=== PATIENT | male | born 1985 | race Caucasian/White ===

== ENCOUNTER 2017-01-10 11:23 | Inpatient (IN) ==
--- NOTE | 2017-01-09 21:11 | Discharge Summary ---
<Aidee Mar - Last Filed: 01/09/17 21:09> Date of Encounter: 01/09/17 - Discharge Diagnosis (1) Avascular necrosis of bone of hip Priority: Secondary Status: Acute Qualifiers: Laterality: right Qualified Code(s): M87.051 - Idiopathic aseptic necrosis of right femur (2) Kidney transplant recipient Priority: Secondary Status: Acute (3) HTN (hypertension) Priority: Secondary Status: Chronic Qualifiers: Hypertension type: essential hypertension Qualified Code(s): I10 - Essential (primary) hypertension (4) DMII (diabetes mellitus, type 2) Priority: Secondary Status: Chronic Qualifiers: Diabetes mellitus complication status: with unspecified complications Diabetes mellitus longitudinal float operator insulin use: unspecified longitudinal float operator insulin use status Qualified Code(s): E11.8 - Type 2 diabetes mellitus with unspecified complications - Discharge Medications Home Medications: Amlodipine Besylate [Norvasc] 10 mg PO DAILY 06/12/15 [History] CloNIDine HCl 0.1 mg PO TID 06/12/15 [History] CycloSPORINE, Mod (Neoral) [Neoral] 75 mg PO BID 06/12/15 [History] Sulfamethoxazole/Trimeth SS [Bactrim] 1 each PO DAILY 06/12/15 [History] Duloxetine HCl [Cymbalta] 60 mg PO BID 12/09/15 [History] Magnesium Oxide [Magnesium] 500 mg PO DAILY 12/09/15 [History] Aspirin Enteric Coated [Aspirin EC] 325 mg PO DAILY #21 tablet. 01/09/17 [Rx] OxyCODONE Immed Rel [Roxicodone 5 MG] 5 - 10 mg PO Q6HR PRN #40 tablet 01/09/17 [Rx] Acetaminophen [Tylenol] 650 mg PO Q6HR PRN 01/10/17 [History] Aspirin Enteric Coated [Aspirin EC] 81 mg PO DAILY 01/10/17 [History] Atenolol [Tenormin] 50 mg PO DAILY 01/10/17 [History] Cholecalciferol (D-3) [Vitamin D] 1,000 unit PO DAILY 01/10/17 [History] Gabapentin [Neurontin] 600 mg PO TID 01/10/17 [History] Allergies/Adverse Reactions: Allergies No Known Allergies Allergy (Verified 01/10/17 12:45) Primary care physician: Sandor Combs MD - Patient Status Disposition: Home, Self-Care Condition: Good - Discharge Instructions Follow Up With: Blake Harry MD [Partnered Physician] - 02/08/17 8:20 am Aidee Mar PAC [Physician Electrical Sign Wirer Helper] - 01/20/17 9:00 am Sandor Combs MD [Primary Care Provider] - - Hospital Course Hospital course: Mr. Higgins is a 31 year old male - Time Spent with Patient Total time spent providing and/or coordinating discharge services: <Blake Harry - Last Filed: 01/12/17 06:44> Date of Encounter: 01/12/17 Time of Encounter: 06:43 - Discharge Diagnosis (1) Avascular necrosis of bone of hip Priority: Primary Status: Acute Qualifiers: Laterality: right Qualified Code(s): M87.051 - Idiopathic aseptic necrosis of right femur (2) Kidney transplant recipient Priority: Secondary Status: Acute (3) DMII (diabetes mellitus, type 2) Priority: Secondary Status: Chronic Qualifiers: Diabetes mellitus complication status: with unspecified complications Diabetes mellitus longitudinal float operator insulin use: unspecified jail insulin use status Qualified Code(s): E11.8 - Type 2 diabetes mellitus with unspecified complications (4) HTN (hypertension) Priority: Secondary Status: Chronic Qualifiers: Hypertension type: essential hypertension Qualified Code(s): I10 - Essential (primary) hypertension (5) Acute blood loss anemia Priority: Primary Status: Acute Primary care physician: Sandor Combs MD - Patient Status Functional capacity at discharge: uses cane/walker Overall status at discharge: patient is progressing back to baseline - Hospital Course Hospital course: Mr. Higgins is a 31 year old male The patient had an uneventful postoperative course. They received antibiotics and physical therapy and were discharged in stable condition. There will follow -up in the office in 2 weeks. Hematocrit 23 received 2 units prior to discharge. - Time Spent with Patient Total time spent providing and/or coordinating discharge services:
[2017-01-10] MEDS ORDERED: *HR* Succinylcholine 200 MG/10 ML VIAL IVP ONE (11:34)
[2017-01-10] MEDS ORDERED: *HR* Propofol 200 MG/20 ML VIAL IVP ONE (11:34)
[2017-01-10] MEDS ORDERED: *HR* Midazolam HCl 2 MG/2 ML VIAL ONE ×2 (11:34→13:05)
[2017-01-10] MEDS ORDERED: *HR* FentaNYL (PF) 100 MCG/2 ML VIAL ONE ×3 (11:34→13:34)
[2017-01-10] MEDS ORDERED: Dexamethasone 4 MG/ML VIAL ONE ×2 (11:34→13:19)
[2017-01-10] MEDS ORDERED: Lidocaine -MPF 2% 2 ML VIAL ONE (11:34)
[2017-01-10] MEDS ORDERED: Ondansetron 4 MG/2 ML VIAL ONE (11:34)
[2017-01-10] MEDS ORDERED: Famotidine 20 MG/2 ML VIAL IVP ONE (11:44)
[2017-01-10] MEDS ORDERED: 0.9 % Sodium Chloride 1,000 ML IVC SCH (11:45)
--- NOTE | 2017-01-10 11:47 | Anesthesia Evaluation PreOp ---
Date of Encounter: 01/10/17 Time of Encounter: 11:35 - Past History Planned Operation: Rt Total Hip Replacement Cardiac History: HTN Pulmonary History: Smoker PUDDLER PILE DRIVING History: Denies Any Significant HX Other Medical History: Renal (s/p Renal Transplant 2007, elevated creatinine), Other (Anxiety, Henoch Schon[place] Purpora) Alcohol Use: none Drug use: none Medications and Allergies Amlodipine Besylate [Norvasc] 10 mg PO DAILY 06/12/15 [History] Atenolol [Tenormin] 50 mg PO BID 06/12/15 [History] CloNIDine HCl 0.1 mg PO TID 06/12/15 [History] CycloSPORINE, Mod (Neoral) [Neoral] 75 mg PO BID 06/12/15 [History] Furosemide [Lasix] 40 mg PO BIDDIURETIC 06/12/15 [History] Nortriptyline [Pamelor] 10 mg HS 06/12/15 [History] Sulfamethoxazole/Trimeth SS [Bactrim] 1 each PO DAILY 06/12/15 [History] Duloxetine HCl [Cymbalta] 60 mg PO BID 12/09/15 [History] Magnesium Oxide [Magnesium] 1,000 mg PO DAILY 12/09/15 [History] Multivitamin [Multivitamins] 1 tab PO DAILY 12/09/15 [History] Aspirin Enteric Coated [Aspirin EC] 325 mg PO DAILY #21 tablet. 01/09/17 [Rx] OxyCODONE Immed Rel [Roxicodone 5 MG] 5 - 10 mg PO Q6HR PRN #40 tablet 01/09/17 [Rx] Allergies No Known Allergies Allergy (Verified 12/09/15 09:37) - Meds/Allergy Pre-op Review Medications Reviewed: Yes Allergies Reviewed: Yes Beta Blockers on Current Med List: Yes (Took Atenolol today 0500) Anesthesia Results - Labs Laboratory Tests 12/13/16 12/13/16 08:53 08:53 Hgb 13.7 Hct 41.8 Plt Count 200 Sodium 140 Potassium 4.1 BUN 20 Creatinine 1.57 H - Imaging EKG: report reviewed (NSR) Anesthesia Exam O2 Sat Height 1.88 m Weight 99.79 kg Height: 6'2 Weight: 220 lbs NPO (# of Hours): MN Pain Scale: 0 - HEENT Pupil (Motor): Pupils equal, EOMI Mallampati: II Teeth: Edentulous Denture Type: Upper: Complete Oral Opening: Less than or equal to 3 - PUDDLER PILE DRIVING LOC: Oriented PUDDLER PILE DRIVING Motor: Normal RUE, Normal LUE, Normal RLE, Normal LLE, Normal Face PUDDLER PILE DRIVING Sensory: Normal: RUE, LUE, RLE, LLE, Face - Cardiac Rhythm: Regular Murmur: None JVD: No Carotid Bruit: No - Pulmonary Breath Sounds: bilateral Clear Respiratory Effort: Symmetrical Anesthesia Assess/Plan ASA Score: 3 (CKD s/p Renal Transplant HTN Tobacco) Modified Michael Scale for Level of Consciousness: Cooperative, oriented, and tranquil Anesthetic Plan: General Monitoring Plan: Standard Monitors Recovery Plan: PACU (Discussed GA, agrees to proceed)
[2017-01-10] MEDS ORDERED: *HR* Promethazine 25 MG/ML VIAL IVP PRN (12:01)
[2017-01-10] MEDS ORDERED: CeFAZolin Pre 2,000 MG/100 ML 2,000 MG/100 ML BAG IVPB ONE (12:01)
[2017-01-10] MEDS ORDERED: *HR* Labetalol 100 MG/20 ML MDV IVP PRN (12:01)
[2017-01-10] MEDS ORDERED: Albuterol 2.5 MG/3 ML NEBULIZER IH ONE (12:01)
[2017-01-10] MEDS ORDERED: Ringers Solution, Lactated 1,000 ML IVC SCH ×2 (12:15→15:52)
--- NOTE | 2017-01-10 12:23 | History & Physical Report ---
Date of Encounter: 01/10/17 Time of Encounter: 12:23 24 Hour HP Update - Instructions Instructions: If the History and Physical is less than 30 days old and was completed prior to A.M. admission and or procedure and has NOT been updated on calendar day of procedure please complete this update prior to performing procedure. - Update Patient reports changes in Medical Condition: No Changes in assessment/condition: No Changes in Medication: No Preop tests/diagnostics Reviewed: Yes Surgery Remains Indicated: Yes Consent for Planned Operative Procedure(s) Verified: Yes - Pre-Operative Checklist Preoperative Checklist Indicated: No Prophylactic Antibiotic Ordered: Yes Is VTE Prophylaxis Indicated?: Yes
[2017-01-10] MEDS ORDERED: Vancomycin 1,500 MG in D5% in Water 250 ML IVPB ONE (12:27)
[2017-01-10] MEDS ORDERED: Water for inj. (sterile) 10 ML IV ONE (13:38)
[2017-01-10] MEDS ORDERED: *HR* HYDROmorphone 2 MG/ML SYRINGE ONE (13:38)
--- NOTE | 2017-01-10 13:59 | Orthopedic Operative Note ---
Date of procedure: 01/10/17 Pre-op diagnosis: Right hip avascular necrosis Post-op diagnosis: same Procedure: Procedure: Right Total Hip Replacment Estimated blood loss: 500 cc Hardware: Biomet DM Cup: 60 G7 fin cup Femoral size 15 echo full profile lateralized stem Head: +6 head with Shreya Procedural Notes: Severe cartilage loss femoral head Operative procedure: The patient was brought to the operating room and placed on the operating room table. After general anesthesia was administered the patient was placed in the lateral decubitus position with the operative leg up. All pressure points were padded appropriately and the head was stabilized in the neutral position. The operative extremity was prepped and draped in the sterile surgical fashion patient received IV antibiotic prior to skin incision. A standard posterior approach is made to the operative hip, the incision was made through the skin and subcutaneous tissue hemostasis was obtained with Bovie cautery. Using careful sharp dissection the fascia was identified and incised exposing the external rotators. The external rotators were released off the greater trochanter and tagged with #2 FiberWire suture. The capsule was T'd open and the hip was brought into internal rotation. Patient noted to have severe cartilage loss femoral head. The femoral neck cut was made at the appropriate level. An anterior capsulotomy was performed for the anterior retractor. Soft tissues removed from the acetabulum. Acetabulum was first reamed medially, and then reamed in 15 degrees of anteversion and 45 degrees off the horizontal. It was reamed up to the appropriate size 60 The appropriate-sized 60 acetabular cup was impacted in place in 15 degrees of anteversion and 45 degrees off the horizontal. This had good fit and fixation. The hip was brought back in to internal rotation and prepared with the boxing promoter followed by the canal finder followed by broaching process in 20 degrees anteversion. It was broached up to the appropriate size 15 The femoral implant was impacted in place in 20 degrees of anteversion. Trial reduction found the hip to be stable with a +6 head and Shreya. The trials were removed and the real implants were impacted in place. The hip was reduced, patient had apparent equal leg lengths. The hip had excellent stability with forward flexion to 90 degrees adduction of 30 degrees and internal rotation of 60 degrees. The hip had no shuck. The hips after 2 minutes with a Betadine saline solution. It was irrigated out with 2 L of pulse irrigation. The external rotators were reattached to drill holes in the greater trochanter. Fascia was closed with a running #2 PDS suture. The deep tissue was irrigated and closed deep with #1 PDS suture superficially with 0 PDS suture and skin was closed with Dermabond and skin radha. The patient was placed in a sterile dressing and abduction pillow. The patient was extubated and transferred to the recovery room in stable condition. Anesthesia: DADA Surgeon: Blake Harry Hogshead Dumper: Aidee Mar Condition: stable Disposition: PACU
[2017-01-10] MEDS: *HR* HYDROmorphone (PF) 1 MG/ML SYRINGE IVP PRN ×5 (14:44→21:28)
[2017-01-10 14:55] LABS: Hematocrit 38.7 % (37.5-50.1); Hemoglobin 13.2 g/dL (12.9-16.9)
[2017-01-10] MEDS ORDERED: 0.9 % Sodium Chloride 500 ML ONE (15:17)
--- NOTE | 2017-01-10 15:31 | Anesthesia Evaluation Post Op ---
Date of Encounter: 01/10/17 Time of Encounter: 15:15 - Vital Signs Vital Signs: Vital Signs/O2 Sat/Glucose, Most Current Temp Pulse Resp BP Pulse Ox 01/10/17 15:14 99.7 F H 94 16 135/87 96 01/10/17 14:54 99.3 F 99 16 141/96 100 01/10/17 14:44 91 16 149/99 100 01/10/17 14:34 96 16 151/102 100 01/10/17 14:24 98.4 F 102 18 158/100 100 01/10/17 12:39 18 120/78 99 01/10/17 11:53 99.1 F 84 18 120/78 99 - Lungs Lungs: Clear Ascult./Percussion - Airway Airway: Non-obstructed - Cardiovascular Regular Rate - Mental Status Mental Status: Alert & Oriented, Answers Appropriately - Pain Pain Scale: 2 - Nausea Vomiting Nausea Vomiting: Not Present - Hydration Hydration: NPO - Discharge PostOp Status: Transfer Patient to floor
[2017-01-10] MEDS ORDERED: Ondansetron 4 MG/2 ML VIAL IVP PRN (15:52)
[2017-01-10] MEDS ORDERED: MOM Conc 10 ML UD.LIQ PO PRN (15:52)
[2017-01-10] MEDS ORDERED: *HR* OxyCODONE Immed Rel 5 MG TABLET PO PRN (15:52)
[2017-01-10] MEDS ORDERED: Temazepam 15 MG CAPSULE PO PRN (15:52)
[2017-01-10] MEDS ORDERED: D5% in Water 1,000 ML IV PRN (15:52)
[2017-01-10] MEDS ORDERED: *HR* Dextrose 50 % in Water (Syg) 50 ML SYRINGE IVP PRN (15:52)
[2017-01-10] MEDS ORDERED: Sennosides 8.6 MG TABLET PO PRN (15:52)
[2017-01-10] MEDS ORDERED: Naloxone 0.4 MG/ML INJ IVP PRN (15:52)
[2017-01-10] MEDS ORDERED: Acetaminophen 325 MG TABLET PO PRN (15:52)
[2017-01-10] MEDS ORDERED: Dextrose Gel 15 GM PO PRN ×2 (15:52)
[2017-01-10] MEDS: Gabapentin 300 MG CAPSULE PO SCH ×2 (16:23→21:28)
[2017-01-10] MEDS: ceFAZolin 2,000 MG in D5% in Water 100 ML IVPB SCH (16:48)
[2017-01-10] MEDS ORDERED: *HR* Enoxaparin 30 MG/0.3 ML SYRINGE SQ SCH (18:00)
[2017-01-10] MEDS: cloNIDine HCl 0.1 MG TABLET PO SCH ×2 (18:07→23:42)
[2017-01-10] MEDS: Ascorbic Acid 500 MG TABLET PO SCH (18:07)
[2017-01-10] MEDS: *HR* Enoxaparin 30 MG/0.3 ML SYRINGE SQ SCH (18:07)
[2017-01-10] MEDS: Insulin LISPRO 300 UNITS/3 ML VIAL SQ SCH (18:08)
[2017-01-10] MEDS: *HR* OxyCODONE Immed Rel 5 MG TABLET PO PRN ×2 (19:31→23:41)
[2017-01-10] MEDS: CycloSPORINE, Mod (Neoral) 25 MG CAPSULE PO SCH (23:41)
[2017-01-11] MEDS: *HR* HYDROmorphone (PF) 1 MG/ML SYRINGE IVP PRN ×3 (03:30→17:54)
[2017-01-11] MEDS: ceFAZolin 2,000 MG in D5% in Water 100 ML IVPB SCH (04:43)
[2017-01-11] MEDS: *HR* OxyCODONE Immed Rel 5 MG TABLET PO PRN ×4 (04:43→20:16)
[2017-01-11] MEDS: *HR* Enoxaparin 30 MG/0.3 ML SYRINGE SQ SCH ×2 (04:43→17:54)
--- NOTE | 2017-01-11 06:35 | Orthopedics Progress Note ---
Date of Encounter: 01/11/17 Time of Encounter: 06:35 - Assessment and Plan (1) Avascular necrosis of bone of hip Current Visit: Yes Status: Acute Qualifiers: Laterality: right Qualified Code(s): M87.051 - Idiopathic aseptic necrosis of right femur (2) Kidney transplant recipient Current Visit: Yes Status: Acute (3) DMII (diabetes mellitus, type 2) Current Visit: Yes Status: Chronic Qualifiers: Diabetes mellitus complication status: with unspecified complications Diabetes mellitus fdc insulin use: unspecified fdc insulin use status Qualified Code(s): E11.8 - Type 2 diabetes mellitus with unspecified complications (4) HTN (hypertension) Current Visit: Yes Status: Chronic Qualifiers: Hypertension type: essential hypertension Qualified Code(s): I10 - Essential (primary) hypertension Subjective Interval history: Patient was seen this morning doing well without complaints. Afebrile vital signs stable. Operative extremity: Neurovascularly intact Dressing clean dry and intact Calves nontender Assessment and plan: Continue with postoperative care hematocrit 38 Objective Vital signs: Vital Signs Temp Pulse Resp BP Pulse Ox 01/11/17 04:06 99.2 F 87 15 129/82 97 01/10/17 23:28 98.9 F 106 19 151/93 97 01/10/17 18:00 98.6 F 90 16 140/90 94 L 01/10/17 17:00 98 F 86 15 129/89 95 01/10/17 16:30 98.2 F 84 16 140/90 94 L 01/10/17 16:00 98 F 89 14 132/87 95 01/10/17 15:46 98.6 F 96 16 151/90 97 01/10/17 15:14 99.7 F H 94 16 135/87 96 01/10/17 14:54 99.3 F 99 16 141/96 100 01/10/17 14:44 91 16 149/99 100 01/10/17 14:34 96 16 151/102 100 01/10/17 14:24 98.4 F 102 18 158/100 100 01/10/17 12:39 18 120/78 99 01/10/17 11:53 99.1 F 84 18 120/78 99 Intake and Output 01/10/17 01/10/17 01/11/17 15:59 23:59 07:59 Intake Total 100 / 100 100 / 100 Output Total 500 / 500 450 / 450 Balance -400 / -400 -350 / -350 Intake: IV Fluids 100 / 100 100 / 100 Ancef 2,000 MG In 100 / 100 Dextrose 5% 100 ML @ 200 mls/hr IVPB Q8H CHRISTIN Rx#: [id number] Ancef Premix 2,000 MG/100 100 / 100 ML 2,000 mg In 100 ml @ 200 mls/hr IVPB PREOP ONE Rx#:[id number] Output: Urine 450 / 450 Estimated Blood Loss 500 / 500 Other: Weight 99.79 kg - Labs CBC & BMP: 01/10/17 14:41 - VTE Documentation of Mechanical Device: Venous foot pump, device Consult Discharge Plan - Plan Referrals: Sandor Combs MD [Primary Care Provider] -
--- NOTE | 2017-01-11 08:14 | Nephrology Consult Note ---
Date of Encounter: 01/11/17 Time of Encounter: 08:12 Assessment and Plan (1) Kidney transplant recipient Current Visit: Yes Status: Acute Patient is status post cadaveric renal transplant in 2006. As of December he has exhibited stable renal function. Blood pressure is well controlled. He is maintained on cyclosporine 75 mg twice a day. He has not been on steroids for the past 6 months. 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 We will continue his current medical regimen. I am going to check a metabolic panel just to make sure renal function remains stable. Clinically the patient looks excellent. (2) Avascular necrosis of bone of hip Current Visit: Yes Status: Acute Qualifiers: Laterality: right Qualified Code(s): M87.051 - Idiopathic aseptic necrosis of right femur (3) HTN (hypertension) Current Visit: Yes Status: Chronic Qualifiers: Hypertension type: essential hypertension Qualified Code(s): I10 - Essential (primary) hypertension History of Present Illness - History of Present Illness This is a 31-year-old male with a history of end-stage renal disease related to at bedtime PE. Patient is status post cadaveric renal transplant in 2006. 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 Otherwise he has done well. Baseline creatinine ranges from 1.5-1.6. He currently is maintained on Neoral 75 mg twice a day. He had been on low-dose steroids up until about 6 months ago. Because of side effects the patient discontinued the steroids on his own. He is remained off the steroids since that time. Patient is status post right total hip replacement on January 10 related to avascular necrosis of the right hip. Patient also reports a history of a stress fracture of the left knee. He has had other joint symptoms as well. Otherwise he has been doing well. His blood pressure is stable. Most recent creatinine from December 13 shows that the patient's creatinine is at his usual baseline. Past Med Surg Social Fam HX - Past Medical History Medical history: other Psychiatric history: bipolar - Past Surgical History Surgical History: transplant, other - Social History Smoking Status: Current every day smoker Packs per day: 1/2 Smokeless Tobacco Status: No Alcohol use: none Drug use: none Medications and Allergies Amlodipine Besylate [Norvasc] 10 mg PO DAILY 06/12/15 [History] CloNIDine HCl 0.1 mg PO TID 06/12/15 [History] CycloSPORINE, Mod (Neoral) [Neoral] 75 mg PO BID 06/12/15 [History] Sulfamethoxazole/Trimeth SS [Bactrim] 1 each PO DAILY 06/12/15 [History] Duloxetine HCl [Cymbalta] 60 mg PO BID 12/09/15 [History] Magnesium Oxide [Magnesium] 500 mg PO DAILY 12/09/15 [History] Aspirin Enteric Coated [Aspirin EC] 325 mg PO DAILY #21 tablet.dr 01/09/17 [Rx] OxyCODONE Immed Rel [Roxicodone 5 MG] 5 - 10 mg PO Q6HR PRN #40 tablet 01/09/17 [Rx] Acetaminophen [Tylenol] 650 mg PO Q6HR PRN 01/10/17 [History] Aspirin Enteric Coated [Aspirin EC] 81 mg PO DAILY 01/10/17 [History] Atenolol [Tenormin] 50 mg PO DAILY 01/10/17 [History] Cholecalciferol (D-3) [Vitamin D] 1,000 unit PO DAILY 01/10/17 [History] Gabapentin [Neurontin] 600 mg PO TID 01/10/17 [History] Allergies No Known Allergies Allergy (Verified 01/10/17 12:45) Review of Systems Constitutional: as per HPI Eyes: bilateral: blurred vision (patient denies), diplopia (patient denies) Nose, mouth and throat: no dizziness, no headache(s) Cardiovascular: no chest pain, no palpitations Respiratory: no cough, no dyspnea Gastrointestinal: no abdominal pain, no change in bowel habits Musculoskeletal: as per HPI Musculoskeletal: left: knee pain, right: hip pain Integumentary: no hirsutism, no striae Neurological: as per HPI Psychiatric: no depression, no difficulty concentrating Endocrine: as per HPI Hematologic/Lymphatic: no easy bruising, no lymphadenopathy Exam - Vital Signs Vital signs: Initial Vital Signs Temp Pulse Resp BP Pulse Ox 99.1 F 84 18 120/78 99 01/10/17 11:53 01/10/17 11:53 01/10/17 11:53 01/10/17 11:53 01/10/17 11:53 Vital Signs - Last 8 Hours Temp Pulse Resp BP Pulse Ox 01/11/17 07:28 98.2 F 80 14 125/79 99 01/11/17 04:06 99.2 F 87 15 129/82 97 Intake and Output 01/10/17 01/11/17 01/11/17 23:59 07:59 15:59 Intake Total 200 / 200 Output Total 450 / 450 Balance -250 / -250 Intake: IV Fluids 200 / 200 Ancef 2,000 MG In 200 / 200 Dextrose 5% 100 ML @ 200 mls/hr IVPB Q8H CHRISTIN Rx#: [id number] Output: Urine 450 / 450 - General Appearance Exam: Patient is alert and oriented. He is in no acute distress. Neck is supple. Carotids show no bruits. Lungs clear to auscultation. No wheezing rales or rhonchi. Heart regular rate and rhythm without any murmur or S3-S4 gallops clicks or rubs. Abdomen shows normal bowel sounds bruits masses, megaly or tenderness. There is a renal allograft in the right lower quadrant. Lower extremities show no peripheral edema. There is a functioning AV fistula in the lower portion of the left arm. Results - Lab Results 01/10/17 14:41 Consult Discharge Plan - Plan Referrals: Sandor oCmbs MD [Primary Care Provider] -
[2017-01-11] MEDS: Insulin LISPRO 300 UNITS/3 ML VIAL SQ SCH ×3 (08:34→17:18)
[2017-01-11] MEDS: cloNIDine HCl 0.1 MG TABLET PO SCH ×3 (08:43→20:18)
[2017-01-11] MEDS: Sulfamethoxazole/Trimeth SS 1 TAB PO SCH (08:43)
[2017-01-11] MEDS: CycloSPORINE, Mod (Neoral) 25 MG CAPSULE PO SCH ×2 (08:43→20:17)
[2017-01-11] MEDS: Aspirin Enteric Coated 81 MG Tablet PO SCH (08:44)
[2017-01-11] MEDS: Multivit/Ca/Min/Fe/FA 1 TAB TABLET PO SCH (08:44)
[2017-01-11] MEDS: amLODIPine 5 MG TABLET PO SCH (08:44)
[2017-01-11] MEDS: Cholecalciferol (D-3) 1,000 UNIT TABLET PO SCH (08:44)
[2017-01-11] MEDS: Gabapentin 300 MG CAPSULE PO SCH ×3 (08:44→20:17)
[2017-01-11] MEDS: Magnesium Oxide 400 MG TABLET PO SCH (08:45)
[2017-01-11] MEDS: Ascorbic Acid 500 MG TABLET PO SCH ×2 (08:45→17:54)
[2017-01-11 09:06] LABS: Hematocrit 27.4 % (37.5-50.1)
[2017-01-11 09:07] LABS: Hemoglobin 9.2 g/dL (12.9-16.9)
[2017-01-11 09:21] LABS: Albumin 3.4 g/dL (3.5-5.0); Albumin/Globulin Ratio 0.9 (1.1-2.2); Bilirubin,Total 0.3 mg/dL (0.2-1.2); Calcium 8.6 mg/dL (8.6-10.8); Globulin 3.6 g/dL (2.4-3.5); Potassium 5.3 mEq/L (3.5-4.5)
[2017-01-12] MEDS: *HR* OxyCODONE Immed Rel 5 MG TABLET PO PRN ×5 (00:45→17:49)
[2017-01-12] MEDS: *HR* Enoxaparin 30 MG/0.3 ML SYRINGE SQ SCH (05:08)
[2017-01-12 06:11] LABS: Hematocrit 23.1 % (37.5-50.1)
[2017-01-12 06:14] LABS: Hemoglobin 7.4 g/dL (12.9-16.9)
[2017-01-12 06:29] LABS: BUN/Creatinine Ratio 21 (6-26); Blood Urea Nitrogen 31 mg/dL (8-26); Calcium 8.4 mg/dL (8.6-10.8); Carbon Dioxide 20 mEq/L (19-29); Chloride 103 mEq/L (98-109); Glucose 104 mg/dL (70-99); Osmolality,Calculated 285 (280-300); Sodium 134 mEq/L (136-145); eGFR For African Americans > 60 (> 60); eGFR For Non-African Americans 56 (> 60)
[2017-01-12 06:31] LABS: Potassium 5.1 mEq/L (3.5-4.5)
[2017-01-12] MEDS ORDERED: 0.9 % Sodium Chloride 250 ML IVC PRN (06:33)
[2017-01-12] MEDS ORDERED: Furosemide 20 MG/2 ML VIAL IVP ONE ×2 (06:33→17:46)
[2017-01-12] MEDS: Magnesium Oxide 400 MG TABLET PO SCH (07:57)
[2017-01-12] MEDS: *HR* HYDROmorphone (PF) 1 MG/ML SYRINGE IVP PRN (07:57)
[2017-01-12] MEDS: Ascorbic Acid 500 MG TABLET PO SCH ×2 (07:58→17:50)
[2017-01-12] MEDS: cloNIDine HCl 0.1 MG TABLET PO SCH ×2 (07:58→13:48)
[2017-01-12] MEDS: Cholecalciferol (D-3) 1,000 UNIT TABLET PO SCH (07:58)
[2017-01-12] MEDS: Gabapentin 300 MG CAPSULE PO SCH ×2 (07:59→13:48)
[2017-01-12] MEDS: Sulfamethoxazole/Trimeth SS 1 TAB PO SCH (08:00)
[2017-01-12] MEDS: CycloSPORINE, Mod (Neoral) 25 MG CAPSULE PO SCH (08:00)
[2017-01-12] MEDS: amLODIPine 5 MG TABLET PO SCH (08:01)
[2017-01-12] MEDS: Aspirin Enteric Coated 81 MG Tablet PO SCH (08:01)
[2017-01-12] MEDS: Multivit/Ca/Min/Fe/FA 1 TAB TABLET PO SCH (08:01)
[2017-01-12] MEDS: Insulin LISPRO 300 UNITS/3 ML VIAL SQ SCH ×3 (08:05→16:56)
--- NOTE | 2017-01-12 08:35 | Event Note ---
Date of Encounter: 01/12/17 Time of Encounter: 08:34 Patient reports she is doing well. He anticipates discharge later today. Renal function is stable. Creatinine is 1.48 today. Hemoglobin is dropped to 7.4 following surgery. His binders standing the patient has a blood transfusion ordered. I requested that the nurse called down to the blood bank to request that the pack red blood cells be leukocyte poor since the patient is a transplant recipient.
[2017-01-12] MEDS ORDERED: 0.9 % Sodium Chloride 500 ML ONE (14:31)
[2017-01-12 16:55] VITALS: BP 125/72
[2017-01-12 18:00] LABS: Hematocrit 29.7 % (37.5-50.1)
[2017-01-12 18:03] LABS: Hemoglobin 9.9 g/dL (12.9-16.9)
== END 2017-01-12 18:36 | disposition home or self-care (01) | DRG 469 ==
LOC: SAMDAY 11:23 → 3NENU 15:31
PROVIDERS: ADMIT Orthopaedic Surgery; ATTEND Orthopaedic Surgery

== ENCOUNTER 2022-02-10 11:31 | Inpatient (IN) ==
[2022-02-10] MEDS ORDERED: *HR* HYDROmorphone (PF) 1 MG/ML SYRINGE IVP ONE (12:15)
[2022-02-10] MEDS ORDERED: 0.9 % Sodium Chloride 1,000 ML IVC ONE (12:15)
[2022-02-10] MEDS ORDERED: Piperacillin/Tazobactam 3.375 GM in 0.9 % Sodium Chloride Mini Bag 100 ML IVPB ONE (12:58)
[2022-02-10] MEDS ORDERED: Pantoprazole 40 MG VIAL IVP ONE (12:58)
[2022-02-10 13:20] LABS: Bacteria,Urine Few per hpf (None-Few); Bilirubin,Urine Negative (Negative); Blood,Urine Negative (Negative); Clarity,Urine Clear (Clear); Color,Urine Light-Yellow (Yellow); Glucose,Urine (UA) Normal (Normal); Ketones,Urine 10 mg/dL (Negative); Leukocyte Esterase,Urine Negative (Negative); Mucus,Urine Few per lpf (None-Few); Nitrite,Urine Negative (Negative); PH,Urine 6.5 pH Units (5.0-8.0); Protein,Urine 30 mg/dL (Neg-Trace); RBC,Urine 0-3 per hpf (0-3); Specific Gravity,Urine 1.027 (1.010-1.025); Urobilinogen,Urine Normal (Normal); WBC,Urine 0-3 per hpf (0-3)
[2022-02-10] MEDS ORDERED: Hydrocortisone Sodium Succ 100 MG/2 ML VIAL IVP SCH (13:30)
[2022-02-10 13:34] LABS: Amphetamine Screen,Urine Positive ng/mL (Cutoff=1000); Barbiturate Screen,Urine Negative ng/mL (Cutoff=200); Benzodiazepines Screen,Urine Negative ng/mL (Cutoff=200); Cannabinoid Screen,Urine Positive ng/mL (Cutoff = 50); Cocaine Screen,Urine Negative ng/mL (Cutoff= 300); Opiate Screen,Urine Negative ng/mL (Cutoff=300); Phencyclidine Screen,Urine Negative ng/mL (Cutoff=25)
[2022-02-10 13:41] LABS: Basophils # 0.1 K/mcL (0.0-0.2); Basophils % 0.3 %; Eosinophils # 0.1 K/mcL (0.0-0.6); Eosinophils % 0.3 %; Hematocrit 42.9 % (37.5-50.1); Hemoglobin 14.1 g/dL (12.9-16.9); Immature Granulocytes % 0.3 % (0-4); Lymphocytes # 0.9 K/mcL (0.6-4.6); Lymphocytes % 5.2 %; Mean Corpuscular HGB Conc 32.9 g/dL (31.6-35.5); Mean Corpuscular Hemoglobin 29.6 pg (28.0-33.3); Mean Corpuscular Volume 89.9 fL (83.0-100.0); Mean Platelet Volume 11.3 fL (9.4-12.4); Monocytes # 0.7 K/mcL (0.0-1.3); Monocytes % 4.1 %; Neutrophils # 15.6 K/mcL (1.6-8.9); Platelet Count 238 K/mcL (140-400); Red Blood Count 4.77 M/mcL (4.19-5.50); Red Cell Distribution Width 12.6 % (11.5-14.5); Segmented Neutrophils % 89.8 %; White Blood Count 17.4 K/mcL (4.3-11.1)
[2022-02-10] MEDS ORDERED: Ondansetron 4 MG/2 ML VIAL IVP PRN ×2 (13:57→18:26)
[2022-02-10] MEDS ORDERED: Naloxone 0.4 MG/ML INJ IVP PRN ×2 (13:57→18:26)
[2022-02-10] MEDS ORDERED: Ringers Solution, Lactated 1,000 ML IVC SCH (14:00)
[2022-02-10] MEDS ORDERED: *HR* Propofol 200 MG/20 ML VIAL IVP ONE ×2 (14:05→15:34)
[2022-02-10] MEDS ORDERED: *HR* Succinylcholine 200 MG/10 ML VIAL IVP ONE (14:06)
[2022-02-10] MEDS ORDERED: Lidocaine -MPF 2% 5 ML VIAL ONE (14:06)
[2022-02-10] MEDS ORDERED: *HR* Rocuronium Bromide 50 MG/5 ML VIAL ONE ×2 (14:06→15:32)
[2022-02-10 14:13] LABS: Alanine Aminotransferase 18 Units/L (7-52); Albumin 4.3 g/dL (3.5-5.7); Albumin/Globulin Ratio 1.8 (1.1-2.2); Alkaline Phosphatase 111 Units/L (34-104); Aspartate Amino Transferase 16 Units/L (13-39); BUN/Creatinine Ratio 23 (6-26); Bilirubin,Direct 0.2 mg/dL (0.0-0.2); Bilirubin,Indirect 0.6 mg/dL (0.0-1.0); Bilirubin,Total 0.8 mg/dL (0.3-1.0); Blood Urea Nitrogen 28 mg/dL (6-20); Calcium 9.7 mg/dL (8.6-10.3); Carbon Dioxide 24 mEq/L (23-29); Chloride 104 mEq/L (98-107); Globulin 2.4 g/dL (2.4-3.5); Glucose 109 mg/dL (70-105); Lipase 15 Units/L (11-82); Osmolality,Calculated 290 (280-300); Potassium 4.1 mEq/L (3.5-5.1); Sodium 137 mEq/L (136-145); Total Protein 6.7 g/dL (6.4-8.9); Troponin I < 0.03 ng/mL (< 0.04); eGFR For African Americans > 60 (> 60); eGFR For Non-African Americans > 60 (> 60)
[2022-02-10] MEDS ORDERED: Morphine Sulfate 2 MG/ML SYRINGE IVP ONE ×2 (14:28→18:26)
[2022-02-10] MEDS ORDERED: *HR* OxyCODONE Immed Rel 5 MG TABLET PO PRN (14:54)
[2022-02-10] MEDS ORDERED: *HR* FentaNYL (PF) 100 MCG/2 ML VIAL ONE (14:57)
[2022-02-10] MEDS ORDERED: *HR* Midazolam HCl 2 MG/2 ML VIAL ONE (14:57)
[2022-02-10] MEDS ORDERED: *HR* HYDROMORPHONE 2 MG/ML VIAL ONE (15:44)
[2022-02-10] MEDS ORDERED: Ketamine HCL *QUVA* 50mg (1mL) SYRINGE ONE (15:45)
[2022-02-10] MEDS ORDERED: Fluconazole 200 MG/100 ML 200 MG/100 ML BAG IVPB SCH (17:00)
[2022-02-10] MEDS: *HR* HYDROmorphone PF 0.5 MG/0.5 ML SYRINGE IVP PRN ×4 (17:01→17:34)
[2022-02-10] MEDS ORDERED: Micafungin 100 MG in 0.9 % Sodium Chloride Mini Bag 100 ML IVPB SCH (18:45)
[2022-02-10] MEDS: Micafungin 100 MG in 0.9 % Sodium Chloride Mini Bag 100 ML IVPB SCH (21:52)
[2022-02-10] MEDS: Hydrocortisone Sodium Succ 100 MG/2 ML VIAL IVP SCH (21:53)
[2022-02-10] MEDS ORDERED: Piperacillin/Tazobactam 3.375 GM in 0.9 % Sodium Chloride Mini Bag 100 ML IVPB SCH (23:00)
[2022-02-10] MEDS: Piperacillin/Tazobactam 3.375 GM in 0.9 % Sodium Chloride Mini Bag 100 ML IVPB SCH (23:04)
[2022-02-10] MEDS ORDERED: Acetaminophen IV 1,000 MG/100 ML BAG IVPB ONE (23:15)
[2022-02-11 04:19] LABS: Basophils % 0.1 %; Hematocrit 39.9 % (37.5-50.1); Hemoglobin 13.1 g/dL (12.9-16.9); Immature Granulocytes % 0.5 % (0-4); Lymphocytes # 0.5 K/mcL (0.6-4.6); Lymphocytes % 3.1 %; Mean Corpuscular HGB Conc 32.8 g/dL (31.6-35.5); Mean Corpuscular Hemoglobin 29.5 pg (28.0-33.3); Mean Corpuscular Volume 89.9 fL (83.0-100.0); Mean Platelet Volume 11.8 fL (9.4-12.4); Monocytes # 0.6 K/mcL (0.0-1.3); Monocytes % 3.7 %; Neutrophils # 15.2 K/mcL (1.6-8.9); Platelet Count 194 K/mcL (140-400); Red Blood Count 4.44 M/mcL (4.19-5.50); Segmented Neutrophils % 92.6 %; White Blood Count 16.4 K/mcL (4.3-11.1)
[2022-02-11 04:39] LABS: BUN/Creatinine Ratio 21 (6-26); Blood Urea Nitrogen 22 mg/dL (6-20); Calcium 9.4 mg/dL (8.6-10.3); Carbon Dioxide 23 mEq/L (23-29); Chloride 104 mEq/L (98-107); Glucose 123 mg/dL (70-105); Osmolality,Calculated 289 (280-300); Potassium 3.9 mEq/L (3.5-5.1); Sodium 137 mEq/L (136-145); eGFR For African Americans > 60 (> 60); eGFR For Non-African Americans > 60 (> 60)
[2022-02-11] MEDS ORDERED: *HR* Enoxaparin 40 MG/0.4 ML SYRINGE SQ SCH (06:00)
[2022-02-11] MEDS: Piperacillin/Tazobactam 3.375 GM in 0.9 % Sodium Chloride Mini Bag 100 ML IVPB SCH ×3 (06:14→23:53)
[2022-02-11] MEDS: *HR* Enoxaparin 40 MG/0.4 ML SYRINGE SQ SCH (06:14)
[2022-02-11] MEDS: Hydrocortisone Sodium Succ 100 MG/2 ML VIAL IVP SCH ×3 (06:15→21:14)
[2022-02-11] MEDS ORDERED: Acetaminophen IV 1,000 MG/100 ML BAG IVPB ONE (06:36)
[2022-02-11] MEDS: Micafungin 100 MG in 0.9 % Sodium Chloride Mini Bag 100 ML IVPB SCH (08:17)
[2022-02-11] MEDS ORDERED: Fluconazole 200 MG/100 ML 200 MG/100 ML BAG IVPB SCH (09:00)
[2022-02-11] MEDS ORDERED: Orphenadrine 60 MG/2 ML VIAL IVP PRN (09:51)
[2022-02-11] MEDS ORDERED: Chloraseptic Spray 177 ML BOTTLE MM PRN (10:39)
[2022-02-11] MEDS ORDERED: Saliva Stimulant 44.3ml BOTTLE PO PRN (10:39)
[2022-02-11] MEDS: Acetaminophen IV 1,000 MG/100 ML BAG IVPB SCH ×3 (12:02→23:54)
[2022-02-11] MEDS: Pantoprazole 40 MG VIAL IVP SCH (17:30)
[2022-02-11] MEDS ORDERED: *HR* LORazepam 2 MG/ML VIAL IVP ONE (20:28)
[2022-02-12] MEDS: Hydrocortisone Sodium Succ 100 MG/2 ML VIAL IVP SCH ×3 (06:20→22:07)
[2022-02-12] MEDS: Acetaminophen IV 1,000 MG/100 ML BAG IVPB SCH ×3 (06:21→18:37)
[2022-02-12] MEDS: *HR* Enoxaparin 40 MG/0.4 ML SYRINGE SQ SCH (06:21)
[2022-02-12] MEDS: Piperacillin/Tazobactam 3.375 GM in 0.9 % Sodium Chloride Mini Bag 100 ML IVPB SCH ×3 (06:22→22:06)
[2022-02-12] MEDS: Pantoprazole 40 MG VIAL IVP SCH ×2 (06:24→16:39)
[2022-02-12] MEDS: Micafungin 100 MG in 0.9 % Sodium Chloride Mini Bag 100 ML IVPB SCH (08:11)
[2022-02-12] MEDS ORDERED: *HR* Labetalol 20 MG/4 ML SYRINGE IVP PRN (08:49)
[2022-02-12 09:56] LABS: Basophils % 0.2 %; Eosinophils # 0.1 K/mcL (0.0-0.6); Eosinophils % 0.5 %; Hematocrit 36.2 % (37.5-50.1); Hemoglobin 12.2 g/dL (12.9-16.9); Immature Granulocytes % 0.4 % (0-4); Lymphocytes # 0.8 K/mcL (0.6-4.6); Lymphocytes % 7.4 %; Mean Corpuscular HGB Conc 33.7 g/dL (31.6-35.5); Mean Corpuscular Hemoglobin 30.5 pg (28.0-33.3); Mean Corpuscular Volume 90.5 fL (83.0-100.0); Mean Platelet Volume 11.5 fL (9.4-12.4); Monocytes # 0.6 K/mcL (0.0-1.3); Monocytes % 5.5 %; Neutrophils # 9.5 K/mcL (1.6-8.9); Platelet Count 206 K/mcL (140-400); Red Cell Distribution Width 13.2 % (11.5-14.5)
[2022-02-12 10:59] LABS: Alanine Aminotransferase 15 Units/L (7-52); Albumin 3.7 g/dL (3.5-5.7); Albumin/Globulin Ratio 1.4 (1.1-2.2); Alkaline Phosphatase 86 Units/L (34-104); Aspartate Amino Transferase 15 Units/L (13-39); BUN/Creatinine Ratio 23 (6-26); Bilirubin,Total 0.4 mg/dL (0.3-1.0); Blood Urea Nitrogen 23 mg/dL (6-20); Calcium 9.5 mg/dL (8.6-10.3); Carbon Dioxide 23 mEq/L (23-29); Chloride 104 mEq/L (98-107); Globulin 2.7 g/dL (2.4-3.5); Glucose 88 mg/dL (70-105); Osmolality,Calculated 287 (280-300); Potassium 3.9 mEq/L (3.5-5.1); Sodium 137 mEq/L (136-145); Total Protein 6.4 g/dL (6.4-8.9); eGFR For African Americans > 60 (> 60); eGFR For Non-African Americans > 60 (> 60)
[2022-02-12 19:41] LABS: Hematocrit 36.3 % (37.5-50.1); Hemoglobin 11.8 g/dL (12.9-16.9)
[2022-02-12 19:50] LABS: INR 1.2; Prothrombin Time 13.2 Seconds (9.4-12.1)
[2022-02-12] MEDS ORDERED: *HR* Metoprolol 5 MG/5 ML VIAL IVP ONE (21:26)
[2022-02-12] MEDS: Pantoprazole 40 MG in 0.9 % Sodium Chloride Mini Bag 100 ML IVC SCH (22:16)
[2022-02-13] MEDS: Acetaminophen IV 1,000 MG/100 ML BAG IVPB SCH ×5 (01:07→23:38)
[2022-02-13] MEDS: Pantoprazole 40 MG in 0.9 % Sodium Chloride Mini Bag 100 ML IVC SCH (03:04)
[2022-02-13] MEDS ORDERED: *HR* Dextrose 50 % in Water (Syg) 50 ML SYRINGE IVP PRN (03:57)
[2022-02-13] MEDS ORDERED: D5% in Water 1,000 ML IVC PRN (03:57)
[2022-02-13] MEDS ORDERED: Dextrose 4 GM Chewable Tablets PO PRN ×2 (03:57)
[2022-02-13] MEDS: Hydrocortisone Sodium Succ 100 MG/2 ML VIAL IVP SCH ×3 (05:00→21:42)
[2022-02-13] MEDS: *HR* Enoxaparin 40 MG/0.4 ML SYRINGE SQ SCH (05:00)
[2022-02-13] MEDS ORDERED: Pantoprazole 40 MG VIAL IVP SCH (06:00)
[2022-02-13 06:10] LABS: Basophils % 0.5 %; Eosinophils # 0.1 K/mcL (0.0-0.6); Eosinophils % 1.1 %; Hematocrit 34.9 % (37.5-50.1); Hemoglobin 11.3 g/dL (12.9-16.9); Immature Granulocytes % 0.4 % (0-4); Lymphocytes % 12.8 %; Mean Corpuscular HGB Conc 32.4 g/dL (31.6-35.5); Mean Corpuscular Hemoglobin 29.4 pg (28.0-33.3); Mean Corpuscular Volume 90.6 fL (83.0-100.0); Mean Platelet Volume 10.6 fL (9.4-12.4); Monocytes # 0.5 K/mcL (0.0-1.3); Monocytes % 7.1 %; Neutrophils # 5.9 K/mcL (1.6-8.9); Platelet Count 209 K/mcL (140-400); Red Blood Count 3.85 M/mcL (4.19-5.50); Red Cell Distribution Width 13.2 % (11.5-14.5); Segmented Neutrophils % 78.1 %; White Blood Count 7.6 K/mcL (4.3-11.1)
[2022-02-13 06:30] LABS: Alanine Aminotransferase 13 Units/L (7-52); Albumin 3.5 g/dL (3.5-5.7); Albumin/Globulin Ratio 1.3 (1.1-2.2); Alkaline Phosphatase 77 Units/L (34-104); Aspartate Amino Transferase 8 Units/L (13-39); BUN/Creatinine Ratio 23 (6-26); Bilirubin,Total 0.4 mg/dL (0.3-1.0); Blood Urea Nitrogen 22 mg/dL (6-20); Calcium 9.4 mg/dL (8.6-10.3); Carbon Dioxide 24 mEq/L (23-29); Chloride 105 mEq/L (98-107); Globulin 2.7 g/dL (2.4-3.5); Glucose 94 mg/dL (70-105); Osmolality,Calculated 293 (280-300); Potassium 3.8 mEq/L (3.5-5.1); Sodium 140 mEq/L (136-145); Total Protein 6.2 g/dL (6.4-8.9); eGFR For African Americans > 60 (> 60); eGFR For Non-African Americans > 60 (> 60)
[2022-02-13] MEDS: Piperacillin/Tazobactam 3.375 GM in 0.9 % Sodium Chloride Mini Bag 100 ML IVPB SCH ×3 (07:56→23:39)
[2022-02-13 10:02] LABS: Hematocrit 35.5 % (37.5-50.1); Hemoglobin 11.4 g/dL (12.9-16.9)
[2022-02-13] MEDS: Micafungin 100 MG in 0.9 % Sodium Chloride Mini Bag 100 ML IVPB SCH (11:21)
[2022-02-13] MEDS ORDERED: 0.9 % Sodium Chloride 1,000 ML IVC SCH (13:15)
[2022-02-13 17:06] LABS: Hematocrit 35.1 % (37.5-50.1); Hemoglobin 11.3 g/dL (12.9-16.9)
[2022-02-14] MEDS: Piperacillin/Tazobactam 3.375 GM in 0.9 % Sodium Chloride Mini Bag 100 ML IVPB SCH ×3 (06:03→23:45)
[2022-02-14] MEDS: *HR* Enoxaparin 40 MG/0.4 ML SYRINGE SQ SCH (06:04)
[2022-02-14] MEDS: Hydrocortisone Sodium Succ 100 MG/2 ML VIAL IVP SCH ×3 (06:04→23:44)
[2022-02-14 06:12] LABS: Basophils % 0.6 %; Eosinophils # 0.1 K/mcL (0.0-0.6); Hematocrit 33.3 % (37.5-50.1); Hemoglobin 10.6 g/dL (12.9-16.9); Immature Granulocytes % 0.8 % (0-4); Lymphocytes # 1.1 K/mcL (0.6-4.6); Lymphocytes % 15.7 %; Mean Corpuscular HGB Conc 31.8 g/dL (31.6-35.5); Mean Platelet Volume 10.7 fL (9.4-12.4); Monocytes # 0.5 K/mcL (0.0-1.3); Monocytes % 6.7 %; Neutrophils # 5.3 K/mcL (1.6-8.9); Platelet Count 230 K/mcL (140-400); Red Blood Count 3.66 M/mcL (4.19-5.50); Red Cell Distribution Width 12.9 % (11.5-14.5); Segmented Neutrophils % 74.2 %; White Blood Count 7.1 K/mcL (4.3-11.1)
[2022-02-14] MEDS: Acetaminophen IV 1,000 MG/100 ML BAG IVPB SCH ×4 (06:29→23:45)
[2022-02-14 07:28] LABS: BUN/Creatinine Ratio 23 (6-26); Blood Urea Nitrogen 21 mg/dL (6-20); Carbon Dioxide 26 mEq/L (23-29); Chloride 105 mEq/L (98-107); Glucose 101 mg/dL (70-105); Potassium 3.7 mEq/L (3.5-5.1); Sodium 142 mEq/L (136-145); eGFR For African Americans > 60 (> 60); eGFR For Non-African Americans > 60 (> 60)
[2022-02-14 07:29] LABS: Alanine Aminotransferase 11 Units/L (7-52); Albumin 3.4 g/dL (3.5-5.7); Albumin/Globulin Ratio 1.4 (1.1-2.2); Alkaline Phosphatase 68 Units/L (34-104); Aspartate Amino Transferase 8 Units/L (13-39); Bilirubin,Total 0.3 mg/dL (0.3-1.0); Calcium 9.2 mg/dL (8.6-10.3); Globulin 2.5 g/dL (2.4-3.5); Osmolality,Calculated 297 (280-300); Total Protein 5.9 g/dL (6.4-8.9)
[2022-02-14] MEDS: Micafungin 100 MG in 0.9 % Sodium Chloride Mini Bag 100 ML IVPB SCH (07:52)
[2022-02-14] MEDS ORDERED: Pantoprazole 40 MG in 0.9 % Sodium Chloride Mini Bag 100 ML IVC SCH (08:00)
[2022-02-14] MEDS: Pantoprazole 40 MG VIAL IVP SCH (17:33)
[2022-02-15 05:04] LABS: Basophils # 0.1 K/mcL (0.0-0.2); Basophils % 0.6 %; Eosinophils # 0.3 K/mcL (0.0-0.6); Eosinophils % 3.1 %; Hematocrit 32.2 % (37.5-50.1); Hemoglobin 10.8 g/dL (12.9-16.9); Immature Granulocytes % 0.8 % (0-4); Lymphocytes % 12.3 %; Mean Corpuscular HGB Conc 33.5 g/dL (31.6-35.5); Mean Corpuscular Hemoglobin 29.8 pg (28.0-33.3); Mean Platelet Volume 10.7 fL (9.4-12.4); Monocytes # 0.5 K/mcL (0.0-1.3); Monocytes % 5.7 %; Neutrophils # 6.4 K/mcL (1.6-8.9); Nucleated Red Blood Cells 0.2 /100 WBC (0); Platelet Count 222 K/mcL (140-400); Red Blood Count 3.62 M/mcL (4.19-5.50); Red Cell Distribution Width 12.6 % (11.5-14.5); Segmented Neutrophils % 77.5 %; White Blood Count 8.3 K/mcL (4.3-11.1)
[2022-02-15] MEDS: Pantoprazole 40 MG VIAL IVP SCH (05:40)
[2022-02-15] MEDS: Hydrocortisone Sodium Succ 100 MG/2 ML VIAL IVP SCH (05:40)
[2022-02-15] MEDS: *HR* Enoxaparin 40 MG/0.4 ML SYRINGE SQ SCH (05:40)
[2022-02-15] MEDS: Piperacillin/Tazobactam 3.375 GM in 0.9 % Sodium Chloride Mini Bag 100 ML IVPB SCH (05:47)
[2022-02-15] MEDS: Acetaminophen IV 1,000 MG/100 ML BAG IVPB SCH ×2 (05:48→11:53)
[2022-02-15] MEDS ORDERED: CycloSPORINE, Mod (Neoral) 25 MG CAPSULE PO SCH (09:00)
[2022-02-15] MEDS: Micafungin 100 MG in 0.9 % Sodium Chloride Mini Bag 100 ML IVPB SCH (09:41)
[2022-02-15 10:45] VITALS: BP 174/89; PULSE 85; TEMP 98.6; O2SAT 97
[2022-02-15 12:13] LABS: Alanine Aminotransferase 19 Units/L (7-52); Albumin 3.6 g/dL (3.5-5.7); Albumin/Globulin Ratio 1.3 (1.1-2.2); Alkaline Phosphatase 80 Units/L (34-104); Aspartate Amino Transferase 15 Units/L (13-39); BUN/Creatinine Ratio 14 (6-26); Bilirubin,Total 0.5 mg/dL (0.3-1.0); Blood Urea Nitrogen 12 mg/dL (6-20); Calcium 9.2 mg/dL (8.6-10.3); Carbon Dioxide 27 mEq/L (23-29); Chloride 102 mEq/L (98-107); Globulin 2.8 g/dL (2.4-3.5); Glucose 112 mg/dL (70-105); Osmolality,Calculated 285 (280-300); Potassium 3.3 mEq/L (3.5-5.1); Sodium 137 mEq/L (136-145); Total Protein 6.4 g/dL (6.4-8.9); eGFR For African Americans > 60 (> 60); eGFR For Non-African Americans > 60 (> 60)
[2022-02-15] MEDS ORDERED: Hydrocortisone Sodium Succ 100 MG/2 ML VIAL IVP SCH (18:00)
== END 2022-02-15 12:52 | disposition home or self-care (01) | DRG 853 ==
LOC: 3ANU 11:31 → EMEROOARM 11:31 → SUATTDRO 16:45 → 3ANU 17:44
PROVIDERS: ADMIT Internal Medicine; ATTEND Family Medicine